=== PATIENT | female | born 1995 | race American Indian/Alaskan Native ===

== ENCOUNTER 2019-06-21 20:22 | Emergency (ER) | payer SELFPAY ==
--- NOTE | 2019-06-21 20:54 | Emergency Department Report ---
Blank Doc - Documentation Documentation: 23-year-old female that presents with vaginal discharge and burning sensation. This initial assessment/diagnostic orders/clinical plan/treatment(s) is/are subject to change based on patient's health status, clinical progression and re- assessment by fellow clinical providers in the ED. Further treatment and workup at subsequent clinical providers discretion. Patient/guardians urged not to elope from the ED as their condition may be serious if not clinically assessed and managed. Initial orders include: 1- Patient sent to [facility] for further evaluation and treatment 2- UA 3- pelvic exam to be done
[2019-06-21 20:56] VITALS: BP 122/78
[2019-06-21 23:15] LABS: HCG Qualitative,Urine Negative (Negative)
[2019-06-21 23:16] LABS: Bacteria,Urine 1+ /HPF (Negative); Bilirubin,Urine NEG (Negative); Blood,Urine NEG (Negative); Color,Urine Yellow (Yellow); Mucus,Urine FEW /HPF; Protein,Urine <15 mg/dL mg/dL (Negative)
--- NOTE | 2019-06-21 23:19 | Emergency Department Report ---
ED Female HPI - General Chief complaint: Urogenital-Female Stated complaint: VAG BURNING/POSS STD Time Seen by Provider: 06/21/19 20:53 Source: patient Mode of arrival: Ambulatory Limitations: No Limitations - History of Present Illness Initial comments: This is a 23-year-old -[place] female who presents to the emergency room with vaginal discharge and possible STD. Patient states she caught her spouse cheating on her and thinks she possibly have a sexually transmitted disease. Her last menstrual period was May 262019, 0. She denies pelvic pain, back pain, urinary frequency, urgency, or dysuria. MD Complaint: vaginal discharge, possible STD -: Last night Location: labia Radiation: non-radiating Severity: mild Severity scale (0 -10): 0 Improves with: none Worsens with: none Are you Now?: No Last Menstrual Period: 06/24/19 EDC: 03/30/20 Associated Symptoms: vaginal discharge. denies: vaginal bleeding, abdominal pain, nausea/vomiting, fever/chills, headaches, loss of appetite, dysuria, hematuria, rash, seizure, shortness of breath, syncope, weakness - Related Data Sexually active: Yes : 0 Para: 0 Previous Rx's Medication Instructions Recorded Last Taken Type metroNIDAZOLE [Flagyl TAB] 500 mg PO Q12HR #14 tab 06/21/19 Unknown Rx Allergies Allergy/AdvReac Type Severity Reaction Status Date / Time No Known Allergies Allergy Unverified 06/21/19 20:56 ED Review of Systems ROS: Stated complaint: VAG BURNING/POSS STD Other details as noted in HPI Constitutional: denies: chills, fever Respiratory: denies: cough, shortness of breath, wheezing Cardiovascular: denies: chest pain, palpitations Gastrointestinal: denies: abdominal pain, nausea, diarrhea Genitourinary: discharge. denies: urgency, dysuria, frequency, hematuria, dyspareunia Musculoskeletal: denies: back pain, joint swelling, arthralgia Skin: denies: rash, lesions Neurological: denies: headache, weakness, paresthesias Psychiatric: denies: anxiety, depression ED Past Medical Hx - Social History Smoking Status: Never Smoker Substance Use Type: Alcohol - Medications Home Medications: Home Medications Medication Instructions Recorded Confirmed Last Taken Type metroNIDAZOLE [Flagyl TAB] 500 mg PO Q12HR #14 tab 06/21/19 Unknown Rx ED Physical Exam - General Limitations: No Limitations General appearance: alert, in no apparent distress - Respiratory Respiratory exam: Present: normal lung sounds bilaterally. Absent: respiratory distress - Cardiovascular Cardiovascular Exam: Present: regular rate, normal rhythm. Absent: systolic murmur, diastolic murmur, rubs, gallop - GI/Abdominal GI/Abdominal exam: Present: soft, normal bowel sounds. Absent: distended, tenderness, guarding, rebound, rigid, organomegaly - External exam: Present: normal external exam Speculum exam: Present: vaginal discharge (Malodorous frothy white). Absent: erythema, cervical discharge, vaginal bleeding, foreign body, tissue, laceration Bi-manual exam: Present: normal bi-manual exam - Extremities Exam Extremities exam: Present: normal inspection - Back Exam Back exam: Absent: CVA tenderness (R), CVA tenderness (L) - Neurological Exam Neurological exam: Present: alert, oriented X3, normal gait - Psychiatric Psychiatric exam: Present: normal affect, normal mood - Skin Skin exam: Present: warm, dry, intact, normal color. Absent: rash ED Course Vital Signs 06/21/19 06/21/19 20:28 20:30 Temperature 98.0 F 98.1 F Pulse Rate 90 90 Respiratory 16 20 Rate Blood Pressure 111/69 122/78 O2 Sat by Pulse 100 99 Oximetry ED Medical Decision Making - Lab Data Lab Results 06/21/19 Range/Units Unknown Urine Color Yellow (Yellow) Urine Turbidity Cloudy (Clear) Urine pH 7.0 (5.0-7.0) Ur Specific Brooks 1.018 (1.003-1.030) Urine Protein <15 mg/dl (Negative) mg/dL Urine Glucose (UA) Neg (Negative) mg/dL Urine Ketones Neg (Negative) mg/dL Urine Blood Neg (Negative) Urine Nitrite Neg (Negative) Ur Reducing Substances Not Reportable Urine Bilirubin Neg (Negative) Urine Ictotest Not Reportable Urine Urobilinogen 4.0 (<2.0) mg/dL Ur Leukocyte Esterase Neg (Negative) Urine WBC (Auto) 2.0 (0.0-6.0) /HPF Urine RBC (Auto) 1.0 (0.0-6.0) /HPF U Epithel Cells (Auto) 26.0 H (0-13.0) /HPF Urine Bacteria (Auto) 1+ (Negative) /HPF Urine Mucus Few /HPF Urine HCG, Qual Negative (Negative) - Medical Decision Making This is a 23-year-old female who presents to the emergency room with dysuria and vaginal discharge since last week. Vitals are stable and patient in no acute distress. Work-up: Urinalysis, urine test, pelvic exam, wet prep, and gonorrhea chlamydia. Abdomen nontender on exam. Patient denies urinary frequency, urgency, abdominal pain, or back pain. Wet prep positive for clue cells, negative yeast and trichomonas. Epithelial cells on urinalysis. Patient empirically treated for gonorrhea and chlamydia with azithromycin and Rocephin. Start metronidazole for acute cervicitis. Referral to gynecology for continued care. Patient given instructions to follow-up in 3 to 5 days for pending gonorrhea and Chlamydia results. Patient discharged home stable with strict return instructions. Critical care attestation.: If time is entered above; I have spent that time in minutes in the direct care of this critically ill patient, excluding procedure time. ED Disposition Clinical Impression: Cervicitis, Vaginal discharge, Dysuria, Bacterial vaginitis, STD exposure Disposition: - TO HOME OR SELFCARE Is pt being admited?: No Condition: Stable Instructions: Bacterial Vaginosis (ED), Cervicitis (ED) Additional Instructions: Complete antibiotics as prescribed. Avoid drinking alcohol while taking antibiotics and up to 24 hours of completion. Follow-up in 3 to 5 days for pending gonorrhea chlamydia lab results. Follow-up with a acid cutter or primary care doctor for continued care. Prescriptions: metroNIDAZOLE [Flagyl TAB] 500 mg PO Q12HR #14 tab Referrals: [facility] [Provider Group] - 3-5 Days [facility] [Provider Group] - 3-5 Days [facility] [Provider Group] - 3-5 Days Forms: STI Treatment and Prevention Time of Disposition: 23:24
[2019-06-21] MEDS ORDERED: LIDOCAINE-MPF (1%) 10 MG/1 ML VIAL 5 ML INFILTRATI ONE (23:22)
[2019-06-21] MEDS ORDERED: AZITHROMYCIN 250 MG TAB PO ONE (23:22)
== END 2019-06-21 23:30 | disposition home or self-care (01) ==
LOC: ED 20:22
DX: N76.0 Acute vaginitis (principal); B96.89 Other specified bacterial agents as the cause of diseases classified elsewhere; N72 Inflammatory disease of cervix uteri; Z20.2 Contact with and (suspected) exposure to infections with a predominantly sexual mode of transmission
CPT/HCPCS: 81001; 81025; 87210; 87591; 96372; 99284; J0696